=== PATIENT | female | born 1970 | race Caucasian/White ===

== ENCOUNTER 2016-12-31 13:33 | Emergency (ER) | payer OTHER ==
[2016-12-31 13:33] VITALS: BMI 25.7
--- NOTE | 2016-12-31 13:48 | ED PDOC ---
Arrival/HPI - General Historian: Patient - History of Present Illness Time/Duration: > week Symptom Onset: Gradual Symptom Course: Worsening Severity Level: 9 - General Chief Complaint: Abdominal Pain Time Seen by Provider: 12/31/16 13:47 - History of Present Illness Narrative History of Present Illness (Text): 46 F with PMH of jaw tumor with multiple implantations, rejection of implantation, vitamin D deficiency and Anemia presents to ED for complaint of abdominal pain. Patient states that she has been having abdominal pain intermittently since her surgery on 12/07/16. At that time, the patient had a myomectomy and bilateral salpingectomy. The pain has been gradually getting worse. Patient has been following with [facility] who did the surgery who gave her a script for an Abdominal CT scheduled for tomorrow. She states the pain was so bad that she couldn't wait any longer. She rates the pain 9/10 in severity. She describes the pain as sharp and cramping located around the umbilicus radiating to suprapubic region. Palpation and certain movement exacerbates the pain while percocet provides some relief. Admits fever/chills, nausea/vomiting, vaginal discharge, dysuria, constipation. Denies cp, sob, palpitations, diarrhea, incontinence, numbness/tingling. PMH: jaw tumor with multiple implantations, rejection of implantation, vitamin D deficiency and Anemia Meds: percocet, iron Allergy: latex, PCN Hosp: last month for myomectomy and bilateral salpingectomy PSH: myomectomy and bilateral salpingectomy, multiple jaw surgeries, appendectomy, multiple rib surgeries for jaw implant use (anterior and posterior ) Social: denies tobacco/etoh/illicit drug use (Imbrescia,Josafat) Past Medical History - Provider Review Nursing Documentation Reviewed: Yes - Travel History Have you recently traveled outside [place] w/in the past 3 mons?: No - Infectious Disease Hx of Infectious Diseases: None - Tetanus Immunization Tetanus Immunization: Unknown - Cardiac Hx Hypertension: Yes - Musculoskeletal/Rheumatological Other/Comment: Tumor on mandible - Psychiatric Hx Substance Use: No - Surgical History Hx Appendectomy: Yes Hx Section: Yes Other/Comment: facila surgery, metal placement ([id number]) - Anesthesia Hx Anesthesia: Yes Hx Anesthesia Reactions: No Family/Social History - Physician Review Nursing Documentation Reviewed: Yes Family/Social History: Unknown Family HX Smoking Status: Never Smoked Hx Alcohol Use: Yes Hx Substance Use: No Allergies/Home Meds Allergies/Adverse Reactions: Allergies latex Allergy (Verified 12/31/16 13:40) SHORTNESS OF BREATH Penicillins Allergy (Verified 12/31/16 13:40) SHORTNESS OF BREATH Home Medications: Home Meds Medication Instructions Recorded Confirmed Unobtainable 12/31/16 12/31/16 Review of Systems - Review of Systems Constitutional: Fevers Eyes: absent: Vision Changes, Photophobia, Eye Pain ENT: absent: Hearing Changes, Tinnitus, TMJ Pain, Sore Throat Respiratory: Cough. absent: SOB, Sputum, Wheezing Cardiovascular: absent: Chest Pain, Palpitations Gastrointestinal: Abdominal Pain, Constipation, Nausea, Vomiting Genitourinary Female: absent: Dysuria, Frequency, Hematuria Musculoskeletal: absent: Arthralgias, Back Pain, Neck Pain Skin: absent: Rash, Pruritis, Skin Lesions Neurological: absent: Headache, Dizziness, Focal Weakness Endocrine: absent: Diaphoresis, Polyuria, Polydipsia Hemo/Lymphatic: absent: Adenopathy, Easy Bleeding, Easy Bruising Psychiatric: absent: Anxiety, Depression, Suicidal Ideation Physical Exam Vital Signs Reviewed: Yes Temperature: Afebrile Blood Pressure: Normal Pulse: Regular Respiratory Rate: Normal Appearance: Positive for: Uncomfortable Pain Distress: Moderate Mental Status: Positive for: Alert and Oriented X 3 - Systems Exam Head: Present: Atraumatic, Normocephalic Pupils: Present: PERRL Extroacular Muscles: Present: EOMI Conjunctiva: Present: Normal Mouth: Present: Moist Mucous Membranes Neck: Present: Normal Range of Motion, Trachea Midline Respiratory/Chest: Present: Clear to Auscultation, Good Air Exchange Cardiovascular: Present: Regular Rate and Rhythm, Normal S1, S2, Peripheal Pulses Present Abdomen: Present: Tenderness, Normal Bowel Sounds, Scars (horizontal scar in suprapubic region ). No: Rebound, Guarding Genitourinary/Pelvic Exam: Present: Vaginal Discharge, Vaginal Bleeding, Adenexal Tenderness, Odor Back: No: CVA Tenderness Upper Extremity: Present: NORMAL PULSES, Neurovascularly Intact, Capillary Refill < 2s Lower Extremity: Present: NORMAL PULSES, Neurovascularly Intact, Capillary Refill < 2 s Neurological: Present: GCS=15, CN II-XII Intact, Speech Normal, Motor Func Grossly Intact, Normal Sensory Function Skin: Present: Warm, Dry, Normal Color Lymphatic: No: Cervical Adenopathy, Axillary Adenopathy, Inguinal Adenopathy Psychiatric: Present: Alert, Oriented x 3, Normal Insight, Normal Concentration Vital Signs Temp Pulse Resp BP Pulse Ox 12/31/16 23:07 98.2 F 75 17 140/90 97 12/31/16 20:25 98.2 F 84 18 138/81 98 12/31/16 19:10 18 133/81 12/31/16 18:07 80 18 113/87 12/31/16 15:55 73 18 119/84 98 12/31/16 13:43 98.5 F 90 17 119/81 98 Medical Decision Making ED Course and Treatment: 12/31/16 20:24 Signed out to me at change of shift. Patient with recent gynecological surgery presents today with lower abdominal pain. CT shows 2 possible abscesses. Zosyn administered. Vitals and labs unremarkable. Dr. Jaz Bustamante OBG[facility]Hansel who performed the myomectomy accepts patient to her service at [facility]. [facility] [place] [facility] abdomen/pelvis with PO & IV contrast, CXR, EKG, cbc, cmp, mag, phos, PT/PTT, ordered. Morphine given for pain. EKG shows NSR at 82 bpm. Labs reviewed hgb 9.9. Rest of labs showed no significant change from baseline. CT scan showing multiple hypodense areas worrisome for abscesses (see full report). Pelvis US ordered. (Josafat Avina) - Lab Interpretations Microbiology Results: Microbiology Results 12/31/16 19:10 Urine Urine Culture - Final No Growth (<1,000 CFU/ML) Lab Results: 12/31/16 14:20 12/31/16 14:20 Lab Results 12/31/16 19:10: Urine Color Yellow, Urine Appearance Sl cloudy, Urine pH 6.0, Ur Specific [place] 1.010, Urine Protein Negative, Urine Glucose (UA) Negative, Urine Ketones Negative, Urine Blood Large H, Urine Nitrate Negative, Urine Bilirubin Negative, Urine Urobilinogen 0.2, Ur Leukocyte Esterase Large H, Urine RBC 10 - 15, Urine WBC 15 - 20, Ur Epithelial Cells 3 - 4, Urine Bacteria Mod 12/31/16 14:20: Sodium 138, Potassium 4.5, Chloride 105, Carbon Dioxide 24, Anion Gap 14, BUN 17, Creatinine 0.5, Est GFR ( Amer) > 60, Est GFR (Non- Af Amer) > 60, Random Glucose 89, Calcium 9.2, Phosphorus 4.3, Magnesium 1.8, Total Bilirubin 0.6, AST 32, ALT 46, Alkaline Phosphatase 113, Total Protein 8.1 , Albumin 3.7, Globulin 4.3, Albumin/Globulin Ratio 0.9 L 12/31/16 14:20: PT 10.5, INR 0.97, APTT 29.6 12/31/16 14:20: WBC 8.4, RBC 4.04, Hgb 9.9 L, Hct 30.8 L, MCV 76.2 L, MCH 24.5 L , MCHC 32.1, RDW 17.8 H, Plt Count 587 H, MPV 9.7, Gran % 70.6 H, Lymph % (Auto ) 19.9 L, [place] % (Auto) 7.0 H, Eos % (Auto) 2.3, Baso % (Auto) 0.2, Gran # 5.91 , Lymph # 1.7, [place] # 0.6, Eos # 0.2, Baso # 0.02 - RAD Interpretation Radiology Orders: 12/31/16 14:02 ABD PELVIS PO & IV CONTRAST [CT] Stat CHEST PORTABLE [RAD] Stat - Medication Orders Current Medication Orders: Discontinued Medications Diphenhydramine HCl (Benadryl) 25 mg IVP STAT STA Stop: 12/31/16 15:09 Last Admin: 12/31/16 15:17 Dose: 25 mg Diphenhydramine HCl (Benadryl) 25 mg IVP STAT STA Stop: 12/31/16 21:23 Last Admin: 12/31/16 21:29 Dose: 25 mg Iohexol (Omnipaque 240 (50 Ml)) Confirm Administered Dose 50 ml .ROUTE .STK-MED ONE Stop: 12/31/16 14:10 Iohexol (Omnipaque 350 100 Ml) Confirm Administered Dose 350 mg .ROUTE .STK-MED ONE Stop: 12/31/16 15:54 Morphine Sulfate (Morphine) 2 mg IVP STAT STA Stop: 12/31/16 14:09 Last Admin: 12/31/16 14:50 Dose: 2 mg Re-Assess: BHAVIN Pain Assessment Document 12/31/16 15:50 [place] (Rec: 12/31/16 16:36 [place] [facility] [id number] Pain Reassessment Is this a pain reassessment? Yes Sleep Is patient sleeping during reassessment? No Presence of Pain Presence of Pain Yes Pain Scale Used Pain Scale Used Numeric Location Upper or Lower Lower Pain Location Body Site Abdomen Description Description Cramping Aggravating Factors Changing Position Alleviating Factors/Management Medication Techniques Alleviating Factors Medication Morphine Sulfate (Morphine) 2 mg IVP STAT STA Stop: 12/31/16 20:44 Last Admin: 12/31/16 20:53 Dose: 2 mg Ondansetron HCl (Zofran Inj) 4 mg IVP STAT STA Stop: 12/31/16 15:22 Last Admin: 12/31/16 15:55 Dose: 4 mg Disposition/Present on Arrival - Present on Arrival Any Indicators Present on Arrival: No History of DVT/PE: No History of Uncontrolled Diabetes: No Urinary Catheter: No History of Decub. Ulcer: No History Surgical Site Infection Following: None - Disposition Have Diagnosis and Disposition been Completed?: Yes Disposition Time: 19:00 Patient Plan: Transfer To ([facility]) - Disposition Diagnosis: Pelvic abscess in female Disposition: Trans to Other Acute Care Hosp Condition: STABLE Referrals: PCP,NO [Primary Care Provider] - Follow up with primary
[2016-12-31] MEDS ORDERED: Morphine 2 mg/ml ISec IVP STA ×2 (14:08→20:43)
[2016-12-31] MEDS ORDERED: Iohexol 240 (50 ml) ONE (14:09)
[2016-12-31 14:45] LABS: BASO # 0.02 K/mm3 (0.0-2.0); BASO % 0.2 % (0.0-3.0); EOS # 0.2 (0.0-0.7); EOS % 2.3 % (1.5-5.0); GRAN # 5.91 (1.4-6.5); GRAN % 70.6 % (50.0-68.0); HEMOGLOBIN 9.9 gm/dL (12.0-16.0); LYMPH # 1.7 (1.2-3.4); LYMPH % 19.9 % (22.0-35.0); MEAN CELL VOLUME 76.2 fL (80.0-105.0); MEAN CORPUSCULAR HEMOGLOBIN 24.5 pg (25.0-35.0); MEAN CORPUSCULAR HGB CONC 32.1 g/dl (31.0-37.0); MEAN PLATELET VOLUME 9.7 fl (7.0-11.0); MONO # 0.6 (0.1-0.6); PLATELET COUNT 587 10^3/uL (120.0-450.0); RBC 4.04 10^6/uL (3.5-6.1); RED CELL DISTRIBUTION WIDTH 17.8 % (11.5-14.5); WHITE BLOOD COUNT 8.4 10^3/ul (4.5-11.0)
[2016-12-31] MEDS ORDERED: Oxycodone/Acetaminophen 5/325 mg Tab PO STA (14:48)
[2016-12-31 14:53] LABS: ALB/GLOB RATIO 0.9 (1.1-1.8); ALBUMIN 3.7 g/dL (3.0-4.8); ALT/SGPT 46 U/L (7-56); AST/SGOT 32 U/L (15-39); BLOOD UREA NITROGEN 17 mg/dL (7-21); CALCIUM 9.2 mg/dL (8.4-10.5); GFR AFRICAN-AMERICAN > 60; GFR NON-AFRICAN AMERICAN > 60; MAGNESIUM 1.8 mg/dL (1.7-2.2)
[2016-12-31 14:56] LABS: INR 0.97 (0.93-1.08); PARTIAL THROMBOPLASTIN TIME 29.6 Seconds (23.7-30.8); PROTHROMBIN TIME 10.5 Seconds (9.9-11.8)
[2016-12-31] MEDS ORDERED: DiphenhydrAMINE 50 mg/ml Inj IVP STA ×2 (15:08→21:22)
--- NOTE | 2016-12-31 15:18 | RAD ---
HISTORY: cough COMPARISON: No prior. FINDINGS: LUNGS: No active pulmonary disease. PLEURA: No significant pleural effusion identified, no pneumothorax apparent. CARDIOVASCULAR: Normal. OSSEOUS STRUCTURES: No significant abnormalities. VISUALIZED UPPER ABDOMEN: Normal. OTHER FINDINGS: None. IMPRESSION: No active disease.
[2016-12-31] MEDS ORDERED: Iohexol 350 MG/100 ML VIAL ONE (15:53)
--- NOTE | 2016-12-31 18:58 | CT ---
PROCEDURE: CT Abdomen and Pelvis with oral and IV contrast. HISTORY: severe abdominal pain COMPARISON: None available. TECHNIQUE: Contiguous axial images of the abdomen and pelvis. Oral and IV contrast was administered. Coronal and Sagittal reformats generated and reviewed. Contrast dose: 100 cc Omnipaque 350 Radiation dose: Total exam DLP = 403.85 mGy-cm. This CT exam was performed using one or more of the following dose reduction techniques: Automated exposure control, adjustment of the mA and/or kV according to patient size, and/or use of iterative reconstruction technique. FINDINGS: LOWER THORAX: Mild bibasilar atelectasis. No visible pleural effusion or pneumothorax. LIVER: Hypoattenuation of the liver compatible with hepatic steatosis. 13 x 19 mm low-density lesion within the right hepatic lobe, indeterminate. GALLBLADDER AND BILE DUCTS: Unremarkable. PANCREAS: Unremarkable. SPLEEN: Unremarkable. ADRENALS: Unremarkable. KIDNEYS AND URETERS: The kidneys enhance symmetrically. No hydronephrosis or obstructing renal calculus. 6.7 cm low-density right renal hypodensity measures approximately 19 HU higher than expected for a simple cyst. Additional bilateral hypodensities are too small to characterize. Irregularly shaped 1.7 x 3.7 cm lesion at the right lower pole kidney. BLADDER: Under distention of the urinary bladder limits evaluation. REPRODUCTIVE: Uterus is present. 3.9 cm low-density lesion in the right adnexa, possibly cyst. APPENDIX: 1.5 x 3.2 cm fluid collection adjacent to the cecal apex with focus of air, possibly abscess. The appendix itself is not identified. Correlate with surgical history. Inflammatory changes are evident in this region and appendicitis or sequela of ruptured appendicitis cannot be excluded. BOWEL: The stomach is nondistended. The bowel loops appear within normal limits of caliber without evidence of intestinal obstruction. PERITONEUM: No significant free fluid. No definite free air. LYMPH NODES: No bulky lymphadenopathy identified. VASCULATURE: No aortic aneurysm. BONES: No acute osseous abnormality is detected. OTHER FINDINGS: 1.6 x 3.2 cm low-density hypodense regions superior to the urinary bladder at the level of the uterine fundus, worrisome for abscess or fluid collection. Subcutaneous focus of air within the anterior rectus (series 2, image 134) . IMPRESSION: 1.5 x 3.2 cm fluid collection with focus of air adjacent to the cecal apex, possibly abscess. The appendix itself is not identified. Correlate with surgical history. Inflammatory changes are evident in this region and appendicitis or sequela of ruptured appendicitis cannot be excluded. 1.6 x 3.2 cm low-density hypodense region superior to the urinary bladder at the level of the uterine fundus, worrisome for abscess or fluid collection. Subcutaneous focus of air within the anterior rectus. 3.9 cm low-density lesion in the right adnexa, possibly cyst. Recommend pelvic ultrasound for further evaluation. 13 x 19 mm low-density lesion within the right hepatic lobe, indeterminate. A indeterminate irregularly-shaped 1.7 x 3.7 cm lesion, right lower pole kidney. Recommend further evaluation with ultrasound and or dedicated cross-sectional imaging. 6.7 cm low-density right renal upper pole low-density lesion measures approximately 19 HU, higher than expected for simple cyst. This may be further assessed with ultrasound. Additional findings as above.
[2016-12-31 19:21] LABS: URINE BILIRUBIN NEGATIVE (NEGATIVE); URINE BLOOD LARGE (NEGATIVE); URINE GLUCOSE (UA) NEGATIVE (NEGATIVE); URINE LEUKOCYTE ESTERASE LARGE Leu/uL (NEGATIVE); URINE NITRATE NEGATIVE (NEGATIVE); URINE PROTEIN NEGATIVE mg/dL (<30 mg/dL); URINE UROBILINOGEN 0.2 E.U./dL (<1 E.U./dL)
[2016-12-31 19:23] LABS: URINE APPEARANCE SL CLOUDY (CLEAR); URINE COLOR YELLOW (YELLOW)
[2016-12-31 19:38] LABS: URINE BACTERIA MOD (NEG); URINE WBC 15 - 20 /hpf (0-6)
[2016-12-31 20:27] VITALS: TEMP 98.2
[2016-12-31 23:08] VITALS: BP 140/90; PULSE 75; RESP 17; O2SAT 97
--- NOTE | 2017-01-04 08:11 | CARD ---
APPROVED REPORT EKG Measurement Heart [id number] <Conclusion> Normal sinus rhythm Possible Left atrial enlargement Borderline ECG
== END 2016-12-31 23:25 | disposition short-term general hospital (02) ==
LOC: ED 13:33
DX: N73.9 Female pelvic inflammatory disease, unspecified (principal)
CPT/HCPCS: 71010; 74177; 80053; 81001; 83735; 84100; 85025; 85610; 85730; 87086; 96374; 96375; 96376; 99285; J1200; J2270; J2405; Q9966; Q9967

== ENCOUNTER 2017-02-26 08:48 | Observation (INO) | payer OTHER ==
[2017-02-26 08:49] VITALS: BMI 25.7
[2017-02-26] MEDS ORDERED: Sodium Chloride 0.9% 500 ML IV STA (09:41)
--- NOTE | 2017-02-26 09:59 | ED PDOC ---
Arrival/HPI - General Chief Complaint: GI Problem Time Seen by Provider: 02/26/17 09:22 Historian: Patient - History of Present Illness Narrative History of Present Illness (Text): 02/26/17 09:53 This is a 46 year old female with PMHx jaw tumor s/p implant who presents complaining of 3 days of watery diarrhea. Patient states that for the last 3 days she has been experiencing yellow colored diarrhea without any formed stools or blood in the stools. Patient denies recent travel history or sick contacts. Of note, patient was hospitalized in December for suspected abscesses after a myomectomy and bilateral salpingectomy procedure in November. Patient states that she was hospitalized for 13 days at [facility] and received antibiotics while there. Patient stated that they did not operate on her at the time. Patient today also complains of left sided abdominal pain without radiation. Patient also complaining of productive cough with green sputum and runny nose with congestion. Patient denies fevers, chills, dysuria. Patient admits to chest tightness with intermittent dyspnea after coughing bouts. PMHx: jaw tumor with multiple implantations, vitamin D deficiency and Anemia PSHx: myomectomy and bilateral salpingectomy, multiple jaw surgeries, appendectomy, multiple rib surgeries for jaw implant use (anterior and posterior ) Allergy: latex, PCN Social: denies tobacco/etoh/illicit drug use PMD: Dr. Maldonado Time/Duration: < week Symptom Onset: Sudden Symptom Course: Unchanged Past Medical History - Provider Review Nursing Documentation Reviewed: Yes - Infectious Disease Hx of Infectious Diseases: None - Tetanus Immunization Tetanus Immunization: Unknown - Reproductive Menopause: No - Cardiac Hx Hypertension: Yes - Musculoskeletal/Rheumatological Other/Comment: Tumor on mandible - Psychiatric Hx Substance Use: No - Surgical History Other/Comment: abd surgery , fibroid removal - Anesthesia Hx Anesthesia: Yes Hx Anesthesia Reactions: No Family/Social History - Physician Review Nursing Documentation Reviewed: Yes Family/Social History: No Known Family HX Smoking Status: Never Smoked Hx Alcohol Use: Yes Hx Substance Use: No Allergies/Home Meds Allergies/Adverse Reactions: Allergies latex Allergy (Verified 12/31/16 13:40) SHORTNESS OF BREATH Penicillins Allergy (Verified 12/31/16 13:40) SHORTNESS OF BREATH Home Medications: Home Meds Medication Instructions Recorded Confirmed Unobtainable 12/31/16 02/26/17 Review of Systems - Physician Review All systems were reviewed & negative as marked: Yes - Review of Systems Constitutional: Normal Eyes: Normal ENT: Rhinorrhea, Sinus Congestion Respiratory: SOB (after bouts of coughing), Cough, Sputum (green) Cardiovascular: Other (chest tightness) Gastrointestinal: Abdominal Pain (left sided), Diarrhea (yellow colored). absent: Nausea, Vomiting, Hematochezia Genitourinary Female: Normal. absent: Dysuria Musculoskeletal: Normal Skin: Normal Neurological: Normal Endocrine: Normal Hemo/Lymphatic: Normal Psychiatric: Normal Physical Exam Vital Signs Reviewed: Yes Vital Signs Temp Pulse Resp BP Pulse Ox 02/26/17 15:00 74 18 118/65 100 02/26/17 12:24 79 18 121/63 100 02/26/17 11:00 89 18 123/65 100 02/26/17 08:56 98.2 F 88 18 132/68 96 Temperature: Afebrile Blood Pressure: Normal Pulse: Regular Respiratory Rate: Normal Appearance: Positive for: Well-Appearing Pain Distress: Mild Mental Status: Positive for: Alert and Oriented X 3 - Systems Exam Head: Present: Atraumatic, Normocephalic Pupils: Present: PERRL Extroacular Muscles: Present: EOMI Conjunctiva: Present: Normal Ears: Present: Normal, NORMAL TM Mouth: Present: Moist Mucous Membranes Pharnyx: Present: Other (limited exam due to presence of jaw implant restricting the amount that the patient is able to open her mouth.) Nose (Internal): Present: Moist, Boggy, Other (erythematous) Neck: Present: Normal Range of Motion Respiratory/Chest: Present: Clear to Auscultation, Good Air Exchange Cardiovascular: Present: Regular Rate and Rhythm, Normal S1, S2 Abdomen: Present: Tenderness (diffuse tenderness but especially localized to left lower quadrant), Normal Bowel Sounds. No: Distention Upper Extremity: Present: Normal Inspection, NORMAL PULSES. No: Edema Lower Extremity: Present: Normal Inspection, NORMAL PULSES. No: Edema, CALF TENDERNESS Neurological: Present: GCS=15, CN II-XII Intact Skin: Present: Warm, Dry, Normal Color. No: Rashes Psychiatric: Present: Alert, Oriented x 3 Medical Decision Making ED Course and Treatment: 02/26/17 10:51 CBC, CMP, Mag, Phos, EKG, Cardiac ISO, NS 500 mL bolus, Portable CXR, CT abd/ pelvis w. PO & IV contrast, C.Diff toxin/antigen Patient hypokalemic, given 40 mEQ PO Kdur. 02/26/17 13:11 EKG showed NSR at rate 70. Portable CXR: IMPRESSION:Minor bibasilar atelectasis 02/26/17 16:03 CT abdomen/pelvis w. PO & IV contrast FINDINGS: LOWER THORAX: Lung bases clear. No infiltrate effusion or basilar pneumothorax. There does appear to be a small hiatal hernia. Slight wall thickening of the distal esophagus likely due to protrusion of gastric mucosa. Possibility of esophagitis or other intrinsic/invasive wall lesion not excluded. Heart size is within range of normal. No significant pericardial effusion. LIVER: The liver is mildly enlarged measuring approximately 18 cm in CC dimension. Mild diffuse fatty hepatic infiltration. Re- demonstrated is a elliptical shaped approximately 19 mm x 11 mm low-attenuation focus right lobe liver which is of uncertain etiology though could represent a proteinaceous cyst or hemangioma. Followup interval recommended to assess stability. Portal and splenic veins are opacified. GALLBLADDER AND BILE DUCTS: Gallbladder is physiologically distended. No evidence of intraluminal gallbladder calculi. PANCREAS: Unremarkable. No mass. No ductal dilatation. SPLEEN: Unremarkable. No splenomegaly. ADRENALS: No adrenal lesions. KIDNEYS AND URETERS: Re- demonstrated is a large lobulated and/or of multi septate hypoattenuation upper/midpole right kidney partially exophytic that a exhibits Hounsfield units slightly higher than simple cyst. The findings could represent a proteinaceous cyst. . Smaller rounded low-attenuation foci anterior upper pole left kidney and posterior mid-lower pole left kidney with Hounsfield units higher than simple cyst as well unchanged. . . Followup ultrasound could be performed for further evaluation of all these findings No evidence of nephrolithiasis or BLADDER: Hydronephrosis. Urinary bladder is incompletely distended which may account for slight thick-walled appearance. Possibility of a cystitis not excluded. . REPRODUCTIVE: There is an approximately 3.6 x 2.0 cm elliptical shaped hypodense of apparent fluid collection adjacent to the left lateral uterine fundus and body that could represent a left adnexal cyst. Consider followup pelvic ultrasound for further evaluation of these findings. Small hyperdense foci in the region of the right lab via and/or vaginal vault There is a small approximately the 17 mm hypodense structure right adnexal region and may represent cyst. APPENDIX: Appendix is not seen with certainty on this study ;. Clinical correlation with history recommended. BOWEL: Evaluation of the bowel is somewhat limited due to incomplete opacification. Stomach is incompletely distended which presumably accounts for thick-walled appearance. Visualized loops of small bowel exhibit normal contour and caliber. No evidence acute mechanical small bowel obstruction. There may be some minimal residual wall thickening of the cecum. The appendix is not seen with complete certainty. PERITONEUM: Previously noted on fluid collection adjacent to the superior margin of the urinary bladder is no longer visible. . In addition, previously noted small fluid collection adjacent to the cecal tip appears to have diminished in size. Previously noted infiltration changes within lower anterior abdominal wall rule resolved LYMPH NODES: Unremarkable. No enlarged lymph nodes. VASCULATURE: Unremarkable. No aortic aneurysm. BONES: No fracture or destructive lesion. OTHER FINDINGS: None. IMPRESSION: Previously noted small fluid collection adjacent to the cecal tip appears have diminished in size. Interval resolution previously noted inflammatory changes and possibly tiny fluid collection within the anterior lower abdominal wall appendix is not seen with any certainty on this study. Mild hepatomegaly. No change small elliptical shaped hypodense focus right lobe liver as above. Mild fatty hepatic infiltration. Bilateral low-attenuation foci both kidneys right larger than left. Hounsfield units higher than that of simple cyst. Rule out proteinaceous and/or hemorrhagic cyst. Followup ultrasound could be performed to confirm. Suspect bilateral adnexal cyst. Follow-up pelvic ultrasound could confirm. Pelvic Ultrasound showed bilateral ovarian cysts. Hospitalist was spoken with at 16:00 and agreed for admission for observation. - Lab Interpretations Lab Results: 02/26/17 10:10 02/26/17 10:10 Lab Results 02/26/17 10:20: Urine Color Yellow, Urine Appearance Clear, Urine pH 6.0, Ur Specific [place] 1.025, Urine Protein 100 H, Urine Glucose (UA) Negative, Urine Ketones Trace H, Urine Blood Large H, Urine Nitrate Negative, Urine Bilirubin Negative, Urine Urobilinogen 0.2, Ur Leukocyte Esterase Negative, Urine RBC 1 - 3, Urine WBC 1 - 3, Ur Epithelial Cells 10 - 12, Urine Bacteria Rare, Urine HCG , Qual Negative 02/26/17 10:10: Sodium 145, Potassium 3.0 L, Chloride 107, Carbon Dioxide 24, Anion Gap 17, BUN 12, Creatinine 0.5, Est GFR ( Amer) > 60, Est GFR (Non- Af Amer) > 60, Random Glucose 98, Calcium 8.6, Phosphorus 3.2, Magnesium 1.7, Total Bilirubin 0.4, AST 43 H, ALT 60 H, Alkaline Phosphatase 78, Lactate Dehydrogenase 459, Total Creatine Kinase 59, Troponin I < 0.01, Total Protein 7.7, Albumin 4.1, Globulin 3.6, Albumin/Globulin Ratio 1.1 02/26/17 10:10: WBC 6.8, RBC 4.66, Hgb 12.8, Hct 37.2, MCV 79.8 L, MCH 27.5, MCHC 34.4, RDW 16.5 H, Plt Count 340, MPV 10.0, Gran % 69.2 H, Lymph % (Auto) 16.1 L, [place] % (Auto) 9.3 H, Eos % (Auto) 5.0, Baso % (Auto) 0.4, Gran # 4.68, Lymph # 1.1 L, [place] # 0.6, Eos # 0.3, Baso # 0.03 I have reviewed the lab results: Yes - RAD Interpretation Radiology Orders: 02/26/17 10:11 ABDOMEN & PELVIS [ABD PELVIS PO & IV CONTRAST] [CT] Stat 02/26/17 10:34 CHEST PORTABLE [RAD] Stat 02/26/17 13:48 PELVIS ULTRASOUND [US] Routine - EKG Interpretation Interpreted by ED Physician: Yes Type: 12 lead EKG - Medication Orders Current Medication Orders: Discontinued Medications Acetaminophen (Tylenol 325mg Tab) 650 mg PO STAT STA Stop: 02/26/17 12:47 Last Admin: 02/26/17 14:41 Dose: 650 mg Sodium Chloride (Sodium Chloride 0.9%) 500 mls @ 999 mls/hr IV .Q31M STA Stop: 02/26/17 10:11 Last Admin: 02/26/17 10:32 Dose: 999 mls/hr Iohexol (Omnipaque 350 100 Ml) Confirm Administered Dose 350 mg .ROUTE .STK-MED ONE Stop: 02/26/17 10:50 Iohexol (Omnipaque 240 (50 Ml)) Confirm Administered Dose 50 ml .ROUTE .STK-MED ONE Stop: 02/26/17 10:50 Ketorolac Tromethamine (Toradol) 15 mg IVP STAT STA Stop: 02/26/17 14:03 Last Admin: 02/26/17 14:41 Dose: 15 mg Metoclopramide HCl (Reglan) 10 mg IVP STAT STA Stop: 02/26/17 16:03 Potassium Chloride (K-Dur 20 Meq Er Tab) 40 meq PO STAT STA Stop: 02/26/17 10:36 Last Admin: 02/26/17 11:34 Dose: 40 meq Disposition/Present on Arrival - Present on Arrival Any Indicators Present on Arrival: No History of DVT/PE: No History of Uncontrolled Diabetes: No Urinary Catheter: No History of Decub. Ulcer: No History Surgical Site Infection Following: None - Disposition Have Diagnosis and Disposition been Completed?: Yes Diagnosis: Abdominal pain Disposition: HOSPITALIZED Disposition Time: 16:00 Patient Plan: Admission, Observation Patient Problems: Current Active Problems Problem Status Onset Abdominal pain Acute Condition: STABLE
[2017-02-26 10:22] LABS: BASO # 0.03 K/mm3 (0.0-2.0); BASO % 0.4 % (0.0-3.0); EOS # 0.3 (0.0-0.7); GRAN # 4.68 (1.4-6.5); GRAN % 69.2 % (50.0-68.0); HEMATOCRIT 37.2 % (36.0-48.0); LYMPH # 1.1 (1.2-3.4); LYMPH % 16.1 % (22.0-35.0); MEAN CELL VOLUME 79.8 fl (80.0-105.0); MEAN CORPUSCULAR HEMOGLOBIN 27.5 pg (25.0-35.0); MEAN CORPUSCULAR HGB CONC 34.4 g/dl (31.0-37.0); MONO # 0.6 (0.1-0.6); MONO % 9.3 % (1.0-6.0); RED CELL DISTRIBUTION WIDTH 16.5 % (11.5-14.5); WHITE BLOOD COUNT 6.8 10^3/ul (4.5-11.0)
[2017-02-26 10:29] LABS: ALB/GLOB RATIO 1.1 (1.1-1.8); ALKALINE PHOSPHATASE 78 U/L (38-126); ALT/SGPT 60 U/L (7-56); AST/SGOT 43 U/L (14-36); BILIRUBIN,TOTAL 0.4 mg/dL (0.2-1.3); BLOOD UREA NITROGEN 12 mg/dL (7-21); CALCIUM 8.6 mg/dL (8.4-10.5); CARBON DIOXIDE 24 mmol/L (21-33); CHLORIDE 107 mmol/L (98-107); GFR AFRICAN-AMERICAN > 60; GLUCOSE,RANDOM 98 mg/dL (70-110); SODIUM 145 mmol/L (132-148); TOTAL PROTEIN 7.7 g/dL (5.8-8.3)
[2017-02-26] MEDS ORDERED: Potassium Chloride 20 mEq ER Tab PO STA (10:35)
[2017-02-26 10:41] LABS: TROPONIN I < 0.01 ng/mL
[2017-02-26] MEDS ORDERED: Iohexol 240 (50 ml) ONE (10:49)
[2017-02-26] MEDS ORDERED: Iohexol 350 MG/100 ML VIAL ONE (10:49)
[2017-02-26 11:02] LABS: URINE APPEARANCE CLEAR (CLEAR); URINE BACTERIA RARE (NEG); URINE BILIRUBIN NEGATIVE (NEGATIVE); URINE BLOOD LARGE (NEGATIVE); URINE COLOR YELLOW (YELLOW); URINE GLUCOSE (UA) NEGATIVE (NEGATIVE); URINE KETONE TRACE mg/dL (NEGATIVE); URINE LEUKOCYTE ESTERASE NEGATIVE Leu/uL (NEGATIVE); URINE PROTEIN 100 mg/dL (<30 mg/dL); URINE UROBILINOGEN 0.2 E.U./dL (<1 E.U./dL)
[2017-02-26 11:26] LABS: MAGNESIUM 1.7 mg/dL (1.7-2.2); PHOSPHOROUS 3.2 mg/dL (2.5-4.5)
--- NOTE | 2017-02-26 12:46 | RAD ---
HISTORY: cough, sob COMPARISON: Comparison chest 12/31/2016 FINDINGS: LUNGS: Minor bibasilar atelectasis PLEURA: No significant pleural effusion identified, no pneumothorax apparent. CARDIOVASCULAR: Normal. OSSEOUS STRUCTURES: No significant abnormalities. VISUALIZED UPPER ABDOMEN: Normal. OTHER FINDINGS: None. IMPRESSION: Minor bibasilar atelectasis
--- NOTE | 2017-02-26 13:42 | CT ---
PROCEDURE: CT abdomen and pelvis dated 02/26/2017 HISTORY: Abdominal pain. History recent abscess. Hx of recent abscesses. Diarrhea COMPARISON: Comparison made with prior CT scan abdomen pelvis 12/31/2016 TECHNIQUE: Contiguous axial images of the abdomen and pelvis. Oral contrast was administered. No IV contrast given. Coronal and Sagittal reformats generated. Radiation dose: Total exam DLP = 376.17 lindsey mGy-cm. This CT exam was performed using one or more of the following dose reduction techniques: Automated exposure control, adjustment of the mA and/or kV according to patient size, and/or use of iterative reconstruction technique. FINDINGS: LOWER THORAX: Lung bases clear. No infiltrate effusion or basilar pneumothorax. There does appear to be a small hiatal hernia. Slight wall thickening of the distal esophagus likely due to protrusion of gastric mucosa. Possibility of esophagitis or other intrinsic/invasive wall lesion not excluded. Heart size is within range of normal. No significant pericardial effusion. LIVER: The liver is mildly enlarged measuring approximately 18 cm in CC dimension. Mild diffuse fatty hepatic infiltration. Re- demonstrated is a elliptical shaped approximately 19 mm x 11 mm low-attenuation focus right lobe liver which is of uncertain etiology though could represent a proteinaceous cyst or hemangioma. Followup interval recommended to assess stability. Portal and splenic veins are opacified. GALLBLADDER AND BILE DUCTS: Gallbladder is physiologically distended. No evidence of intraluminal gallbladder calculi. PANCREAS: Unremarkable. No mass. No ductal dilatation. SPLEEN: Unremarkable. No splenomegaly. ADRENALS: No adrenal lesions. KIDNEYS AND URETERS: Re- demonstrated is a large lobulated and/or of multi septate hypoattenuation upper/midpole right kidney partially exophytic that a exhibits Hounsfield units slightly higher than simple cyst. The findings could represent a proteinaceous cyst. . Smaller rounded low-attenuation foci anterior upper pole left kidney and posterior mid-lower pole left kidney with Hounsfield units higher than simple cyst as well unchanged. . . Followup ultrasound could be performed for further evaluation of all these findings No evidence of nephrolithiasis or BLADDER: Hydronephrosis. Urinary bladder is incompletely distended which may account for slight thick-walled appearance. Possibility of a cystitis not excluded. . REPRODUCTIVE: There is an approximately 3.6 x 2.0 cm elliptical shaped hypodense of apparent fluid collection adjacent to the left lateral uterine fundus and body that could represent a left adnexal cyst. Consider followup pelvic ultrasound for further evaluation of these findings. Small hyperdense foci in the region of the right lab via and/or vaginal vault There is a small approximately the 17 mm hypodense structure right adnexal region and may represent cyst. APPENDIX: Appendix is not seen with certainty on this study ;. Clinical correlation with history recommended. BOWEL: Evaluation of the bowel is somewhat limited due to incomplete opacification. Stomach is incompletely distended which presumably accounts for thick-walled appearance. Visualized loops of small bowel exhibit normal contour and caliber. No evidence acute mechanical small bowel obstruction. There may be some minimal residual wall thickening of the cecum. The appendix is not seen with complete certainty. PERITONEUM: Previously noted on fluid collection adjacent to the superior margin of the urinary bladder is no longer visible. . In addition, previously noted small fluid collection adjacent to the cecal tip appears to have diminished in size. Previously noted infiltration changes within lower anterior abdominal wall rule resolved LYMPH NODES: Unremarkable. No enlarged lymph nodes. VASCULATURE: Unremarkable. No aortic aneurysm. BONES: No fracture or destructive lesion. OTHER FINDINGS: None. IMPRESSION: Previously noted small fluid collection adjacent to the cecal tip appears have diminished in size. Interval resolution previously noted inflammatory changes and possibly tiny fluid collection within the anterior lower abdominal wall appendix is not seen with any certainty on this study. Mild hepatomegaly. No change small elliptical shaped hypodense focus right lobe liver as above. Mild fatty hepatic infiltration. Bilateral low-attenuation foci both kidneys right larger than left. Hounsfield units higher than that of simple cyst. Rule out proteinaceous and/or hemorrhagic cyst. Followup ultrasound could be performed to confirm. Suspect bilateral adnexal cyst. Follow-up pelvic ultrasound could confirm. See above discussion for additional details and findings
--- NOTE | 2017-02-26 18:14 | CP.PCM.HP ---
<Jennifer Li - Last Filed: 02/26/17 22:04> History of Present Illness - History of Present Illness History of Present Illness: This is a 46 year old female with PMHx jaw tumor s/p implant who presented to [facility] complaining of 3 days of non-bloody watery diarrhea with associated left- sided non-radiating abdominal pain. Patient took Imodium for her diarrhea which helped. Her last bowel movement was about 5am this morning, she has not had a bowel movement since despite not taking any anti-diarrheal medications today. Before those 3 days, patient stated she had chest congestion for 4 days with associated productive cough and subjective fever. Today Patient denies sick contacts or changes in dietary habits. Patient admits to chest tightness with intermittent dyspnea after coughing bouts. She traveled to [place] about a week before symptoms started. She denies any major changes in diet. Of note, patient was hospitalized in December for suspected abscesses s/p myomectomy and b/l salpingectomy procedure in November. Patient states that she was hospitalized for 13 days at [facility] and received antibiotics while there. Patient stated that they did not operate on her at the time. ROS: Complains of: Diarrhea, chest tightness, abdominal pain Denies: sick contacts, fevers, chills, dysuria hematuria, back pain, inc. urinary frequency, blood in stool, Nausea, or vomiting. PMHx: jaw tumor with multiple implantations, vitamin D deficiency and Anemia PSHx: myomectomy and bilateral salpingectomy, multiple jaw surgeries, appendectomy, multiple rib surgeries for jaw implant use (anterior and posterior ) Allergy: latex, PCN Social: denies tobacco/etoh/illicit drug use PMD: Dr. Maldonado ED CXR: minor bibasilar atelectasis. CT Abd Pelvis: Previously noted small fluid collection adjacent to the cecal tip appears have diminished in size. Interval resolution previously noted inflammatory changes and possibly tiny fluid collection within the anterior lower abdominal wall appendix is not seen with any certainty on this study. Mild hepatomegaly. No change small elliptical shaped hypodense focus right lobe liver as above. Mild fatty hepatic infiltration. Bilateral low-attenuation foci both kidneys right larger than left. Hounsfield units higher than that of simple cyst. Rule out proteinaceous and/or hemorrhagic cyst. Followup ultrasound could be performed to confirm. Suspect bilateral adnexal cyst. Follow-up pelvic ultrasound could confirm. Pelvis US: B/L ovarian Cyst Present on Admission - Present on Admission Any Indicators Present on Admission: No Review of Systems - Review of Systems All systems: reviewed and no additional remarkable complaints except Review of Systems: As per HPI Past Patient History - Infectious Disease Hx of Infectious Diseases: None - Tetanus Immunizations Tetanus Immunization: Unknown - Past Social History Smoking Status: Never Smoked - CARDIAC Hx Hypertension: Yes - MUSCULOSKELETAL/RHEUMATOLOGICAL Other/Comment: Tumor on mandible - PSYCHIATRIC Hx Substance Use: No - SURGICAL HISTORY Other/Comment: abd surgery , fibroid removal - ANESTHESIA Hx Anesthesia: Yes Hx Anesthesia Reactions: No Meds Allergies/Adverse Reactions: Allergies Allergy/AdvReac Type Severity Reaction Status Date / Time latex Allergy SHORTNESS Verified 02/26/17 20:29 OF BREATH Penicillins Allergy SHORTNESS Verified 02/26/17 20:29 OF BREATH Physical Exam - Constitutional Appears: Non-toxic, No Acute Distress - Head Exam Head Exam: ATRAUMATIC, NORMAL INSPECTION, NORMOCEPHALIC - Eye Exam Eye Exam: EOMI, Normal appearance - ENT Exam ENT Exam: Mucous Membranes Moist - Respiratory Exam Respiratory Exam: Clear to Auscultation Bilateral. absent: Rales, Rhonchi, Wheezes - Cardiovascular Exam Cardiovascular Exam: RRR, +S1, +S2 - GI/Abdominal Exam Additional comments: LUQ and Suprapubic tenderness - Extremities Exam Extremities exam: Positive for: normal capillary refill. Negative for: pedal edema - Back Exam Back exam: absent: CVA tenderness (L), CVA tenderness (R) - Neurological Exam Neurological exam: Alert, Oriented x3 - Psychiatric Exam Psychiatric exam: Normal Affect, Normal Mood - Skin Skin Exam: Dry, Intact, Normal Color, Warm Results - Vital Signs Recent Vital Signs: Last Vital Signs Temp 98.6 F 02/26/17 17:00 Pulse 70 02/26/17 17:00 Resp 18 02/26/17 17:00 BP 116/68 02/26/17 17:00 Pulse Ox 100 02/26/17 17:00 - Labs Result Diagrams: 02/26/17 10:10 02/26/17 10:10 Assessment & Plan - Assessment and Plan (Free Text) Assessment: 46 year old female with significant PMHx of myomectomy w/ b/l salpingetctomy admitted for evaluation and treatment of 3days of watery diarrhea with associated LUQ and suprapubic tenderness. Plan: Differential includes gastritis vs colitis vs ovarian cyst vs cystitis. Patients symptoms began to resolve prior to ED. We will treat with supportive therapy, control pain and observe. Liver enzymes are mildly elevated. First Troponin was negative. Potassium was replaced in ED Abdominal Pain -Liquid Diet -Stool Studies (C.Diff, OVA/Parasite, Stool culture, H.Pylori, Stool Occult blood.) -Morphine 2 Q6. -Fluids -Monitor liver enzymes GI Proph - Protonix Patient seen, examined, and reviewed with Attending Jennifer Li PGY-1 - Date & Time Date: 02/26/17 Time: 05:00 <Eliel Medina - Last Filed: 02/27/17 12:32> Results - Vital Signs Recent Vital Signs: Last Vital Signs Temp 98.0 F 02/27/17 07:30 Pulse 69 02/27/17 07:30 Resp 20 02/27/17 07:30 BP 103/62 02/27/17 07:30 Pulse Ox 97 02/27/17 07:30 - Labs Result Diagrams: 02/27/17 07:30 02/27/17 07:30 Labs: Laboratory Results - last 24 hr 02/27/17 02/27/17 07:30 07:30 WBC 4.2 L D RBC 4.17 Hgb 11.2 L Hct 33.6 L MCV 80.6 MCH 26.9 MCHC 33.3 RDW 16.7 H Plt Count 302 MPV 10.7 Sodium 140 Potassium 3.3 L Chloride 110 H Carbon Dioxide 21 Anion Gap 12 BUN 6 L Creatinine 0.4 L Est GFR ( Amer) > 60 Est GFR (Non-Af Amer) > 60 Random Glucose 103 Calcium 7.9 L Total Bilirubin 0.2 AST 25 ALT 47 Alkaline Phosphatase 70 Total Protein 6.4 Albumin 3.2 Globulin 3.2 Albumin/Globulin Ratio 1.0 L Attending/Attestation - Attestation I have personally seen and examined this patient.: Yes I have fully participated in the care of the patient.: Yes I have reviewed all pertinent clinical information: Yes Notes (Text): 02/26/17 46 year old female with past medical history of jaw tumor s/p jaw surgery and implantations and history of recent myomectomy and bilateral salphigectomy complicated with abscesses treated with antibiotics in November presents today with ocmplaint of URI symptoms, abdominal pain and diarrhea for past [address] abd/pelvis showed decreased size of the previously noted small fluid collection adjacent to the cecal tip with interval resolution of the previously noted inflammatory changes and possible tiny fluid collection with the anterior lower abdominal wall; suspected bilateral adnexal cyst; and bilateral low attenuation foci of both kidneys right greater than left. LFTs are mildly elevated which we will repeat in AM. Hypokalemia was also noted which we will replete and repeat. Stool workup is ordered for diarrhea. Will start on liquids and analgesics for now. Advance diet as tolerated. Patient will need close outpatient follow up with her full time and will also need urology follow up as well. Eliel Medina MD Hospitalist.
[2017-02-26] MEDS ORDERED: Morphine 2 mg/ml ISec IVP PRN (18:32)
[2017-02-26] MEDS: Sodium Chloride 0.9% 100 ML IV SCH (20:59)
[2017-02-26 22:33] VITALS: RESP 20
[2017-02-26] MEDS ORDERED: Pneumococcal 23-Valent Vaccine IM ONE (22:33)
[2017-02-27 02:44] VITALS: O2SAT 97
[2017-02-27] MEDS ORDERED: Pantoprazole 40 mg Susp UD PO SCH (06:00)
[2017-02-27] MEDS: Sodium Chloride 0.9% 100 ML IV SCH (07:01)
[2017-02-27 07:44] VITALS: BP 103/62; PULSE 69; TEMP 98
[2017-02-27 08:16] LABS: HEMATOCRIT 33.6 % (36.0-48.0); MEAN CELL VOLUME 80.6 fl (80.0-105.0); MEAN CORPUSCULAR HEMOGLOBIN 26.9 pg (25.0-35.0); MEAN CORPUSCULAR HGB CONC 33.3 g/dl (31.0-37.0); MEAN PLATELET VOLUME 10.7 fl (7.0-11.0); RED CELL DISTRIBUTION WIDTH 16.7 % (11.5-14.5); WHITE BLOOD COUNT 4.2 10^3/ul (4.5-11.0)
[2017-02-27 09:03] LABS: ALKALINE PHOSPHATASE 70 U/L (38-126); ALT/SGPT 47 U/L (7-56); AST/SGOT 25 U/L (14-36); BILIRUBIN,TOTAL 0.2 mg/dL (0.2-1.3); BLOOD UREA NITROGEN 6 mg/dL (7-21); CALCIUM 7.9 mg/dL (8.4-10.5); CARBON DIOXIDE 21 mmol/L (21-33); CHLORIDE 110 mmol/L (98-107); GFR AFRICAN-AMERICAN > 60; GLUCOSE,RANDOM 103 mg/dL (70-110); POTASSIUM 3.3 mmol/L (3.6-5.0); SODIUM 140 mmol/L (132-148); TOTAL PROTEIN 6.4 g/dL (5.8-8.3)
[2017-02-27] MEDS ORDERED: Potassium Chloride 40 mEq/30 ml LIQ UD PO ONE (09:10)
--- NOTE | 2017-02-27 13:47 | CARD ---
APPROVED REPORT EKG Measurement Heart [id number] <Conclusion> Normal sinus rhythm Normal ECG
--- NOTE | 2017-02-27 14:53 | US ---
HISTORY: Left lower quadrant abdominal pain COMPARISON: None available. TECHNIQUE: Transabdominal sonographic evaluation of the knee pelvis performed and compared with CT scan of the abdomen and pelvis dated 02/26/2017 at 1302 hours. FINDINGS: UTERUS: Uterus is anteverted measuring approximately sleep 8.1 x 4.2 x 5.0 cm. Normal in size and appearance. No fibroid or other mass lesion seen. ENDOMETRIUM: Measures approximately 3.7 mm in diameter. Unremarkable. CERVIX: Cervix measures approximately 3.8 cm with a small nabothian cyst. . Cervix is otherwise unremarkable. RIGHT OVARY: Measures approximately 2.8 x 2.0 x 3.2 cm. No solid mass. Normal flow. . Small cyst measuring 1.7 cm in greatest dimension. LEFT OVARY: Measures approximately 3.5 x 3.3 x 3.3 cm. No solid mass. Normal flow. . There is also small cyst measuring approximately 2.5 cm in greatest dimension. FREE FLUID: No significant free fluid noted. OTHER FINDINGS: None. IMPRESSION: Small bilateral ovarian cysts.
--- NOTE | 2017-02-27 20:32 | CP.PCM.DIS ---
<Jennifer Li - Last Filed: 02/27/17 20:28> Provider - Provider Date of Admission: 02/26/17 16:03 Attending physician: Amy Puentes MD Primary care physician: Lindsay Maldonado DO Consults: None Time Spent in preparation of Discharge (in minutes): 35 Diagnosis - Discharge Diagnosis (1) Abdominal pain Status: Resolved Hospital Course - Lab Results Lab Results: Most Recent Lab Values WBC 4.2 10^3/ul (4.5-11.0) L D 02/27/17 07:30 RBC 4.17 10^6/uL (3.5-6.1) 02/27/17 07:30 Hgb 11.2 g/dL (12.0-16.0) L 02/27/17 07:30 Hct 33.6 % (36.0-48.0) L 02/27/17 07:30 MCV 80.6 fl (80.0-105.0) 02/27/17 07:30 MCH 26.9 pg (25.0-35.0) 02/27/17 07:30 MCHC 33.3 g/dl (31.0-37.0) 02/27/17 07:30 RDW 16.7 % (11.5-14.5) H 02/27/17 07:30 Plt Count 302 10^3/uL (120.0-450.0) 02/27/17 07:30 MPV 10.7 fl (7.0-11.0) 02/27/17 07:30 Gran % 69.2 % (50.0-68.0) H 02/26/17 10:10 Lymph % (Auto) 16.1 % (22.0-35.0) L 02/26/17 10:10 [place] % (Auto) 9.3 % (1.0-6.0) H 02/26/17 10:10 Eos % (Auto) 5.0 % (1.5-5.0) 02/26/17 10:10 Baso % (Auto) 0.4 % (0.0-3.0) 02/26/17 10:10 Gran # 4.68 (1.4-6.5) 02/26/17 10:10 Lymph # 1.1 (1.2-3.4) L 02/26/17 10:10 [place] # 0.6 (0.1-0.6) 02/26/17 10:10 Eos # 0.3 (0.0-0.7) 02/26/17 10:10 Baso # 0.03 K/mm3 (0.0-2.0) 02/26/17 10:10 Sodium 140 mmol/L (132-148) 02/27/17 07:30 Potassium 3.3 mmol/L (3.6-5.0) L 02/27/17 07:30 Chloride 110 mmol/L (98-107) H 02/27/17 07:30 Carbon Dioxide 21 mmol/L (21-33) 02/27/17 07:30 Anion Gap 12 (10-20) 02/27/17 07:30 BUN 6 mg/dL (7-21) L 02/27/17 07:30 Creatinine 0.4 mg/dL (0.5-1.4) L 02/27/17 07:30 Est GFR ( Amer) > 60 02/27/17 07:30 Est GFR (Non-Af Amer) > 60 02/27/17 07:30 Random Glucose 103 mg/dL (70-110) 02/27/17 07:30 Calcium 7.9 mg/dL (8.4-10.5) L 02/27/17 07:30 Phosphorus 3.2 mg/dL (2.5-4.5) 02/26/17 10:10 Magnesium 1.7 mg/dL (1.7-2.2) 02/26/17 10:10 Total Bilirubin 0.2 mg/dL (0.2-1.3) 02/27/17 07:30 AST 25 U/L (14-36) 02/27/17 07:30 ALT 47 U/L (7-56) 02/27/17 07:30 Alkaline Phosphatase 70 U/L (38-126) 02/27/17 07:30 Lactate Dehydrogenase 459 U/L (333-699) 02/26/17 10:10 Total Creatine Kinase 59 U/L (35-230) 02/26/17 10:10 Troponin I < 0.01 ng/mL 02/26/17 10:10 Total Protein 6.4 g/dL (5.8-8.3) 02/27/17 07:30 Albumin 3.2 g/dL (3.0-4.8) 02/27/17 07:30 Globulin 3.2 gm/dL 02/27/17 07:30 Albumin/Globulin Ratio 1.0 (1.1-1.8) L 02/27/17 07:30 Urine Color Yellow (YELLOW) 02/26/17 10:20 Urine Appearance Clear (CLEAR) 02/26/17 10:20 Urine pH 6.0 (4.7-8.0) 02/26/17 10:20 Ur Specific [place] 1.025 (1.005-1.035) 02/26/17 10:20 Urine Protein 100 mg/dL (<30 mg/dL) H 02/26/17 10:20 Urine Glucose (UA) Negative mg/dL (NEGATIVE) 02/26/17 10:20 Urine Ketones Trace mg/dL (NEGATIVE) H 02/26/17 10:20 Urine Blood Large (NEGATIVE) H 02/26/17 10:20 Urine Nitrate Negative (NEGATIVE) 02/26/17 10:20 Urine Bilirubin Negative (NEGATIVE) 02/26/17 10:20 Urine Urobilinogen 0.2 E.U./dL (<1 E.U./dL) 02/26/17 10:20 Ur Leukocyte Esterase Negative [place]/uL (NEGATIVE) 02/26/17 10:20 Urine RBC 1 - 3 /hpf (0-2) 02/26/17 10:20 Urine WBC 1 - 3 /hpf (0-6) 02/26/17 10:20 Ur Epithelial Cells 10 - 12 /hpf (0-5) 02/26/17 10:20 Urine Bacteria Rare (NEG) 02/26/17 10:20 Urine HCG, Qual Negative (NEGATIVE) 02/26/17 10:20 - Hospital Course Hospital Course: This is a 46 year old female with PMHx jaw tumor s/p implant who [place] [facility] [place] of 3 days of non-bloody watery diarrhea with associated left- sided non-radiating abdominal pain. Patients symptoms began to resolve prior to ED. Patient was managed with supportive care and analgesics. Patient tolerated regular soft diet. Patients symptoms resolved in the morning. She was DCd and told to follow up with PMD and [facility]ist. Relevant studies below. ED CXR: minor bibasilar atelectasis. CT Abd Pelvis: Previously noted small fluid collection adjacent to the cecal tip appears have diminished in size. Interval resolution previously noted inflammatory changes and possibly tiny fluid collection within the anterior lower abdominal wall appendix is not seen with any certainty on this study. Mild hepatomegaly. No change small elliptical shaped hypodense focus right lobe liver as above. Mild fatty hepatic infiltration. Bilateral low-attenuation foci both kidneys right larger than left. Hounsfield units higher than that of simple cyst. Rule out proteinaceous and/or hemorrhagic cyst. Followup ultrasound could be performed to confirm. Suspect bilateral adnexal cyst. Follow-up pelvic ultrasound could confirm. Pelvis US: B/L ovarian Cyst Patient seen, examined, and discussed with Attending. Jennifer Li PGY-1 - Date & Time of H&P Date of H&P: 02/27/17 Time of H&P: 12:30 Discharge Exam - Head Exam Head Exam: ATRAUMATIC, NORMAL INSPECTION, NORMOCEPHALIC - Eye Exam Eye Exam: EOMI, Normal appearance - ENT Exam ENT Exam: Mucous Membranes Moist - Respiratory Exam Respiratory Exam: Clear to PA & Lateral. absent: Rales, Rhonchi, Wheezes, Stridor - Cardiovascular Exam Cardiovascular Exam: +S1, +S2 - GI/Abdominal Exam GI & Abdominal Exam: Normal Bowel Sounds, Soft. absent: Organomegaly, Tenderness - Back Exam Back exam: absent: CVA tenderness (L), CVA tenderness (R) - Neurological Exam Neurological exam: Alert, Oriented x3 - Psychiatric Exam Psychiatric exam: Normal Affect, Normal Mood - Skin Skin Exam: Dry, Intact, Normal Color, Warm Discharge Plan - Follow Up Plan Condition: STABLE Disposition: HOME/ ROUTINE Instructions: Heart Healthy Diet (DC), Acute Abdominal Pain (DC), Acute Abdominal Pain (GEN) Additional Instructions: Follow up with PMD in 1 week. Follow up with [facility] Generalist within [address] results with you. If symptoms exacerbate, return to ER. Referrals: Lindsay Maldonado DO [Primary Care Provider] - <Eliel Medina - Last Filed: 02/28/17 17:15> Provider - Provider Date of Admission: 02/26/17 16:03 Attending physician: Amy Puentes MD Primary care physician: Lindsay Maldonado DO Hospital Course - Lab Results Lab Results: Most Recent Lab Values WBC 4.2 10^3/ul (4.5-11.0) L D 02/27/17 07:30 RBC 4.17 10^6/uL (3.5-6.1) 02/27/17 07:30 Hgb 11.2 g/dL (12.0-16.0) L 02/27/17 07:30 Hct 33.6 % (36.0-48.0) L 02/27/17 07:30 MCV 80.6 fl (80.0-105.0) 02/27/17 07:30 MCH 26.9 pg (25.0-35.0) 02/27/17 07:30 MCHC 33.3 g/dl (31.0-37.0) 02/27/17 07:30 RDW 16.7 % (11.5-14.5) H 02/27/17 07:30 Plt Count 302 10^3/uL (120.0-450.0) 02/27/17 07:30 MPV 10.7 fl (7.0-11.0) 02/27/17 07:30 Gran % 69.2 % (50.0-68.0) H 02/26/17 10:10 Lymph % (Auto) 16.1 % (22.0-35.0) L 02/26/17 10:10 [place] % (Auto) 9.3 % (1.0-6.0) H 02/26/17 10:10 Eos % (Auto) 5.0 % (1.5-5.0) 02/26/17 10:10 Baso % (Auto) 0.4 % (0.0-3.0) 02/26/17 10:10 Gran # 4.68 (1.4-6.5) 02/26/17 10:10 Lymph # 1.1 (1.2-3.4) L 02/26/17 10:10 [place] # 0.6 (0.1-0.6) 02/26/17 10:10 Eos # 0.3 (0.0-0.7) 02/26/17 10:10 Baso # 0.03 K/mm3 (0.0-2.0) 02/26/17 10:10 Sodium 140 mmol/L (132-148) 02/27/17 07:30 Potassium 3.3 mmol/L (3.6-5.0) L 02/27/17 07:30 Chloride 110 mmol/L (98-107) H 02/27/17 07:30 Carbon Dioxide 21 mmol/L (21-33) 02/27/17 07:30 Anion Gap 12 (10-20) 02/27/17 07:30 BUN 6 mg/dL (7-21) L 02/27/17 07:30 Creatinine 0.4 mg/dL (0.5-1.4) L 02/27/17 07:30 Est GFR ( Amer) > 60 02/27/17 07:30 Est GFR (Non-Af Amer) > 60 02/27/17 07:30 Random Glucose 103 mg/dL (70-110) 02/27/17 07:30 Calcium 7.9 mg/dL (8.4-10.5) L 02/27/17 07:30 Phosphorus 3.2 mg/dL (2.5-4.5) 02/26/17 10:10 Magnesium 1.7 mg/dL (1.7-2.2) 02/26/17 10:10 Total Bilirubin 0.2 mg/dL (0.2-1.3) 02/27/17 07:30 AST 25 U/L (14-36) 02/27/17 07:30 ALT 47 U/L (7-56) 02/27/17 07:30 Alkaline Phosphatase 70 U/L (38-126) 02/27/17 07:30 Lactate Dehydrogenase 459 U/L (333-699) 02/26/17 10:10 Total Creatine Kinase 59 U/L (35-230) 02/26/17 10:10 Troponin I < 0.01 ng/mL 02/26/17 10:10 Total Protein 6.4 g/dL (5.8-8.3) 02/27/17 07:30 Albumin 3.2 g/dL (3.0-4.8) 02/27/17 07:30 Globulin 3.2 gm/dL 02/27/17 07:30 Albumin/Globulin Ratio 1.0 (1.1-1.8) L 02/27/17 07:30 Urine Color Yellow (YELLOW) 02/26/17 10:20 Urine Appearance Clear (CLEAR) 02/26/17 10:20 Urine pH 6.0 (4.7-8.0) 02/26/17 10:20 Ur Specific [place] 1.025 (1.005-1.035) 02/26/17 10:20 Urine Protein 100 mg/dL (<30 mg/dL) H 02/26/17 10:20 Urine Glucose (UA) Negative mg/dL (NEGATIVE) 02/26/17 10:20 Urine Ketones Trace mg/dL (NEGATIVE) H 02/26/17 10:20 Urine Blood Large (NEGATIVE) H 02/26/17 10:20 Urine Nitrate Negative (NEGATIVE) 02/26/17 10:20 Urine Bilirubin Negative (NEGATIVE) 02/26/17 10:20 Urine Urobilinogen 0.2 E.U./dL (<1 E.U./dL) 02/26/17 10:20 Ur Leukocyte Esterase Negative [place]/uL (NEGATIVE) 02/26/17 10:20 Urine RBC 1 - 3 /hpf (0-2) 02/26/17 10:20 Urine WBC 1 - 3 /hpf (0-6) 02/26/17 10:20 Ur Epithelial Cells 10 - 12 /hpf (0-5) 02/26/17 10:20 Urine Bacteria Rare (NEG) 02/26/17 10:20 Urine HCG, Qual Negative (NEGATIVE) 02/26/17 10:20 Attending/Attestation - Attestation I have personally seen and examined this patient.: Yes I have fully participated in the care of the patient.: Yes I have reviewed all pertinent clinical information, including history, physical exam and plan: Yes Notes (Text): 02/28/17 17:11 46 year old female with past medical history of jaw tumor s/p jaw surgery and implantations and history of recent myomectomy and bilateral salphigectomy complicated with abscesses treated with antibiotics in November presented with complaint of URI symptoms, abdominal pain and diarrhea for past [address] abd/ pelvis showed decreased size of the previously noted small fluid collection adjacent to the cecal tip with interval resolution of the previously noted inflammatory changes and possible tiny fluid collection with the anterior lower abdominal wall; suspected bilateral adnexal cyst; and bilateral low attenuation foci of both kidneys right greater than left. She was admitted for observation. Her symptoms improved and her diet was advanced. Her LFTs improved and her potassium was repleted. Patient is discharged home to follow up with her pmd. Follow up with business unit director. Incidental findings, including liver/kidney findings, were discussed with patient to follow up with pmd/urology. CT report provided for patient. Eliel Medina MD Hospitalist.
== END 2017-02-27 14:37 | disposition home or self-care (01) ==
LOC: ED 08:48 → ERH 16:03 → 5RSO 17:38
PROVIDERS: ADMIT Hospitalist; ATTEND Hospitalist
DX: R10.9 Unspecified abdominal pain (principal); R19.7 Diarrhea, unspecified; E55.9 Vitamin D deficiency, unspecified; N83.201 Unspecified ovarian cyst, right side; N83.202 Unspecified ovarian cyst, left side; D64.9 Anemia, unspecified; I10 Essential (primary) hypertension; R16.0 Hepatomegaly, not elsewhere classified
CPT/HCPCS: 36415; 71010; 74177; 76856; 80053; 81001; 82550; 83615; 83735; 84100; 84484; 84703; 85025; 85027; 93005; 96374; 96375; 99284; G0378; J1885; J2765; J3480; J7040; Q9966; Q9967